=== PATIENT | male | born 1985 | race Two or more races ===

== ENCOUNTER 2019-05-03 18:47 | Emergency (ER) | payer OTHER ==
[~2019-05-03] VITALS: Ht 175.3 cm; Wt 81.2 kg
[2019-05-03 20:12] VITALS: BP 118/71; TEMP 98
== END 2019-05-03 20:12 | disposition home or self-care (01) ==
LOC: ED 18:47
DX: L23.9 Allergic contact dermatitis, unspecified cause (principal)
CPT/HCPCS: 96372; 99283; J1200; J2930